=== PATIENT | male | born 1975 | race Hispanic/Latino ===

== ENCOUNTER 2017-03-07 09:40 | Emergency (ER) | payer OTHER ==
[2017-03-07] MEDS ORDERED: Ketorolac Tromethamine 30 MG/ML VIAL ONE (10:10)
[2017-03-07 10:55] LABS: #Basophils 0.1 thou/uL (0.0-0.2); #Eosinphils 0.3 thou/uL (0.0-0.7); #Lymphocytes 1.9 thou/uL (1.20-3.40); #Monocytes 0.7 thou/uL (0.11-0.59); #Neutrophils 8.4 thou/uL (1.40-6.50); %Basophils 0.5 % (0.0-1.0); %Eosinophils 2.7 % (0.0-10.0); %Monocytes 6.3 % (0.0-10.0); Hematocrit 50.3 % (42.0-52.0); Mean Platelet Volume 7.2 fL (7.4-10.4); Red Blood Cell (RBC) Count 5.19 mill/uL (4.70-6.10); White Blood Cell (WBC) Count 11.4 thou/uL (4.8-10.8)
--- NOTE | 2017-03-07 11:24 | RAD ---
TWO VIEWS CHEST: HISTORY: Fever. TECHNIQUE: PA and lateral views of the chest are obtained. FINDINGS: The lungs are well aerated. No evidence of active intrathoracic disease is seen. No evidence of ef fusions, pneumonia, or pneumothorax is seen. IMPRESSION: Unremarkable two views chest. POS: [facility]
[2017-03-07 11:47] LABS: ALT (SGPT) 20 U/L (8-55); AST (SGOT) 19 U/L (5-34); Alkaline Phosphatase 95 U/L (40-150); Anion Gap 17 mmol/L (10-20); BUN (Urea Nitrogen) 21 mg/dL (8.9-20.6); Bilirubin, Total 0.7 mg/dL (0.2-1.2); Calc. Creatinine Clearance 0 mL/min (70-130); Calcium 9.5 mg/dL (7.8-10.44); Carbon Dioxide 23 mmol/L (22-29); Chloride 105 mmol/L (98-107); Estimated GFR-MDRD 64; Globulin 2.9 g/dL (2.4-3.5); Protein, Total 7.3 g/dL (6.0-8.3)
[2017-03-07 12:17] LABS: Bilirubin Negative (Negative); Glucose, Urine (Dipstick) Negative (Negative)
[2017-03-07 12:18] LABS: Blood, Urine Large (Negative); Ketone, Urine Negative (Negative); Nitrite Negative (Negative); Protein, Urine (Dipstick) Negative (Neg-Trace); Urobilinogen 0.2 mg/dL (0.2-1.0)
[2017-03-07 12:52] LABS: Bacteria/HPF None Seen HPF (None Seen); Hyaline Casts/LPF NONE SEEN LPF (0-3 Hyaline); Squamous Epithelial 0-3 HPF (0-3); WBC/HPF 0-3 HPF (0-3)
--- NOTE | 2017-03-07 13:07 | CT ---
NONCONTRAST CT ABDOMEN AND PELVIS: 03/07/2017 HISTORY: Left flank pain with pain radiating into the abdomen. History of kidney stones. COMPARISON: None available. FINDINGS: There are single, nonobstructing, approximately 2 mm calculi seen in each kidney. No ureteral calcu liya is seen. There is a 2 mm calculus seen in the dependent portion of the urinary bladder, to the left of midline. There is no hydronephrosis or hydroureter. The lung bases, liver, spleen, pancreas, and bilateral adrenal glands demonstrate a grossly normal n onenhanced CT appearance. Scattered colonic diverticula are seen without CT evidence of diverticulitis. The appendix is normal in caliber with suggestion of a tiny appendicolith in the mid portion of the appendix. IMPRESSION: 1. Nonobstructing tiny bilateral renal calculi. 2. Tiny, approximately 2 mm, urinary bladder calculus. No ureteral calculus is seen. There is no hydronephrosis bilaterally. 3. No CT evidence of appendicitis. 4. Colonic diverticulosis. POS: [facility]
== END 2017-03-07 16:01 | disposition home or self-care (01) ==
LOC: ERS 09:40
DX: N20.0 Calculus of kidney (principal)
CPT/HCPCS: 36415; 71020; 74176; 80053; 81003; 81015; 85025; 87040; 96361; 96374; J1885